=== PATIENT | female | born 1990 | race Caucasian/White ===

== ENCOUNTER 2018-06-21 11:02 | Emergency (ER) | payer MEDICAID, OTHER ==
[2018-06-21 11:20] VITALS: BMI 26.4
[2018-06-21 11:22] VITALS: RESP 18; O2SAT 100
[2018-06-21] MEDS ORDERED: Lidocaine 5% Patch TD ONE (11:41)
--- NOTE | 2018-06-21 11:43 | ED PDOC ---
Arrival/HPI - General Chief Complaint: Back Pain Time Seen by Provider: 06/21/18 11:27 Historian: Patient - History of Present Illness Narrative History of Present Illness (Text): 06/21/18 11:37 A 27 year old female, with no significant past medical history, allergic to Percocet, presents to the emergency department complaining of lower back pain starting since yesterday while she was at work sitting at her desk. Patient reports pain radiates up back and down legs bilaterally. States experiences numbness to legs when this occurs, however at this time here in the ER, notes only numbness in right leg for now. Patient mentions having back pain before, which normally indicates her menstrual period is coming. However she explains she still has not gotten her period and also the pain was never this severe in the past. She notes back pain is worse today and worsens more with movement or when ambulating. She had taken 2 pills of Advil, however has had no relief. Patient denies any falls/traumas/injuries, fever, chills, dysuria, hematuria, or any other complaints at this time. Also, patient mentions last bowel movement was this morning and it was normal. Patient also reports having a UTI 2 weeks ago and is no longer experiencing dysuria/frequency at this time, however she is uncertain if UTI has completely resolved or not. PMD: Dr. Zhang Past Medical History - Provider Review Nursing Documentation Reviewed: Yes - Infectious Disease Hx of Infectious Diseases: None - Psychiatric Hx Substance Use: No Family/Social History - Physician Review Nursing Documentation Reviewed: Yes Family/Social History: No Known Family HX Smoking Status: Never Smoked Hx Alcohol Use: No Hx Substance Use: No Allergies/Home Meds Allergies/Adverse Reactions: Allergies acetaminophen [From Percocet] Allergy (Verified 06/21/18 11:19) RASH oxycodone [From Percocet] Allergy (Verified 06/21/18 11:19) RASH Review of Systems - Physician Review All systems were reviewed & negative as marked: Yes - Review of Systems Constitutional: absent: Fevers, Night Sweats, Other (no falls/traumas/injuries.) Genitourinary Female: absent: Dysuria, Hematuria Musculoskeletal: Back Pain (lower back pain, radiating up back and down legs bilaterally.) Physical Exam Vital Signs Reviewed: Yes Vital Signs Temp Pulse Resp BP Pulse Ox 06/21/18 11:21 98.0 F 80 18 109/73 100 Temperature: Afebrile Blood Pressure: Normal Pulse: Regular Respiratory Rate: Normal Appearance: Positive for: Well-Appearing, Non-Toxic, Comfortable Pain Distress: None Mental Status: Positive for: Alert and Oriented X 3 - Systems Exam Head: Present: Atraumatic, Normocephalic Neck: Present: Normal Range of Motion Respiratory/Chest: Present: Clear to Auscultation, Good Air Exchange. No: Respiratory Distress, Accessory Muscle Use Cardiovascular: Present: Regular Rate and Rhythm, Normal S1, S2. No: Murmurs Abdomen: No: Tenderness, Distention, Peritoneal Signs Back: Present: Paraspinal Tenderness (bilateral paraspinal lumbar tenderness) Upper Extremity: Present: Normal ROM (no pain with flexion and extention of the knee/hip), Other (positive straight leg raise (bilaterally)) Lower Extremity: Present: Normal Inspection. No: Edema Neurological: Present: GCS=15, CN II-XII Intact, Speech Normal Skin: Present: Warm, Dry, Normal Color. No: Rashes Psychiatric: Present: Alert, Oriented x 3, Normal Insight, Normal Concentration Medical Decision Making ED Course and Treatment: 06/21/18 11:41 Impression: 27 year old female with lower back pain radiating up back and down legs bilaterally. Physical exam shows bilateral paraspinal lumbar tenderness; positive Straight Leg Raise (bilaterally); and no pain upon flexion and extention of the knee/hip. Plan: -- CT lumbar spine -- Labs -- Urine preg -- Urinalysis -- Valium --Morphine --Rocephine -- Toradol -- Lidoderm -- Reassess and disposition Progress Notes: 06/21/18 15:05 Lab work shows no evidence of leukocytosis or electrolyet abnormalities. UA positive for bacteria and esterase. Patient updated on findings and will be treated with 1 dose of antibiotics and go home with PO antibiotics. She is agreeable to the plan. She is stable for discharge. - Lab Interpretations I have reviewed the lab results: Yes - RAD Interpretation Narrative RAD Interpretations (Text): 06/21/2018 13:[address] IMPRESSION: Unremarkable CT of Lumbar Spine. Dictator: Simon Wolff MD - Scribe Statement The provider has reviewed the documentation as recorded by the Schuyleribe Hanan Dabdi Provider Scribe Attestation: All medical record entries made by the Scribe were at my direction and personally dictated by me. I have reviewed the chart and agree that the record accurately reflects my personal performance of the history, physical exam, medical decision making, and the department course for this patient. I have also personally directed, reviewed, and agree with the discharge instructions and disposition. Disposition/Present on Arrival - Present on Arrival Any Indicators Present on Arrival: No History of DVT/PE: No History of Uncontrolled Diabetes: No Urinary Catheter: No History of Decub. Ulcer: No History Surgical Site Infection Following: None - Disposition Have Diagnosis and Disposition been Completed?: Yes Diagnosis: Cystitis, Pyelonephritis Disposition: HOME/ ROUTINE Disposition Time: 15:09 Patient Plan: Discharge Patient Problems: Current Active Problems Problem Status Onset Cystitis Acute Pyelonephritis Acute Condition: STABLE Discharge Instructions (ExitCare): Urinary Tract Infection, Adult (DC), Kidney Infection (DC) Prescriptions: Ciprofloxacin [Cipro] 500 mg PO BID 7 Days #7 tab Referrals: Linda Zhang MD [Medical Doctor] - Follow up with primary Forms: [employer] (Bhutanese)
[2018-06-21 12:21] LABS: URINE BILIRUBIN NEGATIVE (NEGATIVE); URINE BLOOD TRACE-LYSED (NEGATIVE); URINE GLUCOSE (UA) NEGATIVE (NEGATIVE); URINE LEUKOCYTE ESTERASE LARGE Leu/uL (NEGATIVE); URINE PROTEIN NEGATIVE mg/dL (<30 mg/dL); URINE UROBILINOGEN 0.2 E.U./dL (<1 E.U./dL)
[2018-06-21 12:22] LABS: URINE APPEARANCE CLEAR (CLEAR); URINE COLOR YELLOW (YELLOW)
[2018-06-21 12:27] LABS: URINE BACTERIA MOD (NEG); URINE WBC 15 - 20 /hpf (0-6)
[2018-06-21 12:32] LABS: BASO # 0.02 K/mm3 (0.0-2.0); BASO % 0.3 % (0.0-3.0); EOS # 0.2 (0.0-0.7); EOS % 2.4 % (1.5-5.0); GRAN # 4.46 (1.4-6.5); GRAN % 56.8 % (50.0-68.0); HEMOGLOBIN 13.3 g/dL (12.0-16.0); LYMPH # 2.8 (1.2-3.4); LYMPH % 35.7 % (22.0-35.0); MEAN CELL VOLUME 79.3 fl (80.0-105.0); MEAN CORPUSCULAR HEMOGLOBIN 27.5 pg (25.0-35.0); MEAN CORPUSCULAR HGB CONC 34.7 g/dl (31.0-37.0); MEAN PLATELET VOLUME 10.5 fl (7.0-11.0); MONO # 0.4 (0.1-0.6); MONO % 4.8 % (1.0-6.0); RBC 4.83 10^6/uL (3.5-6.1); WHITE BLOOD COUNT 7.9 10^3/ul (4.5-11.0)
[2018-06-21 12:37] LABS: ALB/GLOB RATIO 1.3 (1.1-1.8); ALBUMIN 4.5 g/dL (3.0-4.8); ALT/SGPT 26 U/L (7-56); AST/SGOT 24 U/L (14-36); BLOOD UREA NITROGEN 8 mg/dL (7-21); CALCIUM 9.6 mg/dL (8.4-10.5); GFR NON-AFRICAN AMERICAN > 60
--- NOTE | 2018-06-21 13:09 | CT ---
Date of service: 06/21/2018 PROCEDURE: CT Lumbar Spine without contrast HISTORY: b/l back pain COMPARISON: None available. TECHNIQUE: Axial computed tomography images were obtained of the lumbar spine without the use of intravenous contrast. Coronal and sagittal reformatted images were created and reviewed. Radiation dose: Total exam DLP = 539 mGy-cm. This CT exam was performed using one or more of the following dose reduction techniques: Automated exposure control, adjustment of the mA and/or kV according to patient size, and/or use of iterative reconstruction technique. FINDINGS: VERTEBRAE: Unremarkable. No fracture. Normal alignment. DISCS/SPINAL CANAL/NEURAL FORAMINA: L1-2: Unremarkable. L2-3: Unremarkable. L3-4: Unremarkable. L4-5: Unremarkable. L5-S1: Unremarkable. PARASPINAL SOFT TISSUES: Unremarkable. OTHER FINDINGS: None. IMPRESSION: Unremarkable CT of Lumbar Spine.
[2018-06-21] MEDS ORDERED: Morphine 4 mg/ml ISec IVP STA (13:42)
[2018-06-21] MEDS ORDERED: cefTRIAXone 1 gm 1 GM/100 ML BAG IVPB STA (14:51)
[2018-06-21] MEDS ORDERED: Ciprofloxacin 400mg/200ml D5W 400 MG/200 ML BAG IVPB STA (15:30)
[2018-06-21 17:47] VITALS: BP 114/72; PULSE 74; TEMP 98.2
== END 2018-06-21 17:44 | disposition home or self-care (01) ==
LOC: ED 11:02
DX: N30.90 Cystitis, unspecified without hematuria (principal); N12 Tubulo-interstitial nephritis, not specified as acute or chronic
CPT/HCPCS: 72131; 80053; 81001; 85025; 87086; 96372; 96374; 99284; J1885; J2270